=== PATIENT | female | born 1945 | race Caucasian/White ===

== ENCOUNTER 2019-01-21 06:56 | Emergency (ER) | payer MEDICARE, OTHER ==
[2019-01-21 07:08] VITALS: BP 142/103; PULSE 94
--- NOTE | 2019-01-21 07:23 | EDM.PDOC ---
ED HPI GENERAL MEDICAL PROBLEM - General Chief Complaint: Respiratory Problem Stated Complaint: PERSISTENT COUGH Time Seen by Provider: 01/21/19 07:09 - History of Present Illness INITIAL COMMENTS - FREE TEXT/NARRATIVE: HISTORY AND PHYSICAL: History of present illness: Patient is a 73-year-old white female who presents with concern of persistent cough after a recent vacation to [place] she states her son and [id number] both had developed pneumonia and she was concerned medical screening for pneumonia. She denies fever chills nausea vomiting she has no shortness of breath. She denies any cardiac history denies history of CHF denies chest pain Review of systems: As per history of present illness and below otherwise all systems reviewed and negative. Past medical history: As per history of present illness and as reviewed below otherwise noncontributory. Surgical history: As per history of present illness and as reviewed below otherwise noncontributory. Social history: No reported history of drug or alcohol abuse. Family history: As per history of present illness and as reviewed below otherwise noncontributory. Physical exam: HEENT: Atraumatic, normocephalic, pupils reactive, negative for conjunctival pallor or scleral icterus, mucous membranes moist, throat clear, neck supple, nontender, trachea midline. Lungs: Clear to auscultation, breath sounds equal bilaterally, chest nontender. Heart: S1S2, regular, negative for clicks, rubs, or JVD. Abdomen: Soft, nondistended, nontender. Negative for masses or hepatosplenomegaly. Negative for costovertebral tenderness. Pelvis: Stable nontender. Genitourinary: Deferred. Rectal: Deferred. Extremities: Atraumatic, negative for cords or calf pain. Neurovascular unremarkable. Neuro: Awake, alert, oriented. Cranial nerves II through XII unremarkable. Cerebellum unremarkable. Motor and sensory unremarkable throughout. Exam nonfocal. Diagnostics: Chest x-ray Therapeutics: None Impression: #1 pneumonitis Definitive disposition and diagnosis as appropriate pending reevaluation and review of above. - Related Data Allergies Allergy/AdvReac Type Severity Reaction Status Date / Time iodine Allergy Headache Verified 01/21/19 07:08 penicillin Allergy Hives Verified 01/21/19 07:08 Home Meds: Home Meds Caolcium Supplement 1 tab PO DAILY 01/25/15 [History] High Blood Pressure Pill 0 mg PO DAILY 01/25/15 [History] Past Medical History HEENT History: Reports: Impaired Vision Cardiovascular History: Reports: Hypertension Respiratory History: Reports: None Gastrointestinal History: Reports: None Genitourinary History: Reports: None [facility] [employer] History: Reports: Musculoskeletal History: Reports: None Neurological History: Reports: None Psychiatric History: Reports: None Endocrine/Metabolic History: Reports: None Hematologic History: Reports: None Immunologic History: Reports: None Oncologic (Cancer) History: Reports: None Dermatologic History: Reports: None - Infectious Disease History Infectious Disease History: Reports: Chicken Pox, Measles, Mumps, Shingles - Past Surgical History Head Surgeries/Procedures: Reports: None GI Surgical History: Reports: Cholecystectomy, Colonoscopy Female Surgical History: Reports: Hysterectomy Social & Family History - Tobacco Use Smoking Status *Q: Never Smoker - Recreational Drug Use Recreational Drug Use: No ED ROS GENERAL - Review of Systems Review Of Systems: ROS reveals no pertinent complaints other than HPI. ED EXAM, GENERAL - Physical Exam Exam: See Below (The dictation) Course - Vital Signs Last Recorded V/S: Last Vital Signs Temp 36.9 C 01/21/19 07:04 Pulse 94 01/21/19 07:04 Resp 18 01/21/19 07:04 BP 142/103 H 01/21/19 07:04 Pulse Ox 97 01/21/19 07:04 Departure - Departure Time of Disposition: 08:32 Disposition: Home, Self-Care 01 Condition: Good Clinical Impression: Pneumonitis - Discharge Information Referrals: PCP,None [Primary Care Provider] - Forms: ED Department Discharge Additional Instructions: The following information is given to patients seen in the emergency department who are being discharged to home. This information is to outline your options for follow-up care. We provide all patients seen in our emergency department with a follow-up referral. The need for follow-up, as well as the timing and circumstances, are variable depending upon the specifics of your emergency department visit. If you don't have a primary care physician on staff, we will provide you with a referral. We always advise you to contact your personal physician following an emergency department visit to inform them of the circumstance of the visit and for follow-up with them and/or the need for any referrals to a consulting specialist. The emergency department will also refer you to a specialist when appropriate. This referral assures that you have the opportunity for followup care with a specialist. All of these measure are taken in an effort to provide you with optimal care, which includes your followup. Under all circumstances we always encourage you to contact your private physician who remains a resource for coordinating your care. When calling for followup care, please make the office aware that this follow-up is from your recent emergency room visit. If for any reason you are refused follow-up, please contact the [facility] emergency department at and asked to speak to the emergency department charge nurse. [id number]-Anatoliy as prescribed follow-up primary medical doctor as needed as discussed and return as needed as discussed
--- NOTE | 2019-01-21 08:13 | CR ---
CHEST 2 VIEWS INDICATION: Chest pain, shortness of breath. IMPRESSION: Normal heart size and vascular pattern. Lungs are clear. No pneumothorax or pleural effusion. Dictated by Vijay Brandon MD @ Jan 21 2019 8:10AM Signed by Dr. Vijay Brandon @ Jan 21 2019 8:11AM
== END 2019-01-21 08:47 | disposition home or self-care (01) ==
LOC: MW.ED 06:56
DX: J18.9 Pneumonia, unspecified organism (principal); I10 Essential (primary) hypertension; Z88.0 Allergy status to penicillin; Z91.048 Other nonmedicinal substance allergy status; Z79.899 Other long term (current) drug therapy
CPT/HCPCS: 71046; 71046-26; 99282; 99283-25

== ENCOUNTER 2022-05-06 07:36 | Emergency (ER) | payer MEDICARE, OTHER ==
[2022-05-06 07:57] VITALS: BP 209/97; PULSE 78
== END 2022-05-06 08:48 | disposition home or self-care (01) ==
LOC: MW.ED 07:36
DX: H00.015 Hordeolum externum left lower eyelid (principal); I10 Essential (primary) hypertension; Z88.0 Allergy status to penicillin; Z91.041 Radiographic dye allergy status
CPT/HCPCS: 99283

== ENCOUNTER 2023-02-26 10:23 | Observation (INO) | payer MEDICARE, OTHER ==
[2023-02-26] MEDS ORDERED: Ondansetron 4 MG/2 ML SDV ONE (10:31)
[2023-02-26] MEDS ORDERED: Ondansetron 4 MG/2 ML SDV IVPUSH ONE (10:49)
[2023-02-26] MEDS ORDERED: Prochlorperazine 10 MG/2 ML SDV IVPUSH ONE (11:31)
[2023-02-26] MEDS ORDERED: Iopamidol 755 MG/ML 500 ML Multipack Bottle IVPUSH STA (11:36)
[2023-02-26 11:38] LABS: BASOPHILS PERCENT AUTO 0.2 % (0.0-1.5); HEMATOCRIT 41.1 % (36.0-46.0); LYMPHOCYTES ABSOLUTE AUTO 0.5 K/uL (0.6-2.4); MEAN CORPUSCULAR HGB CONC 34.1 g/dL (31.0-37.0); MEAN CORPUSCULAR VOLUME 88.2 fL (80.0-98.0); MONOCYTES ABSOLUTE AUTO 0.2 K/uL (0.0-0.8); MONOCYTES PERCENT AUTO 2.1 % (0.0-15.0); NEUTROPHILS PERCENT AUTO 93.7 % (48.0-80.0); NRBC ABSOLUTE 0 K/uL; PLATELET COUNT,PLT 258 K/uL (150-400); RED BLOOD CELL COUNT 4.66 M/uL (4.30-5.90); WHITE BLOOD CELL COUNT,WBC 11.69 K/uL (4.0-11.0)
[2023-02-26 12:00] LABS: A/G RATIO 1.1 (0.9-1.6); ALBUMIN 3.9 g/dL (3.4-5.0); CALCIUM 9.3 mg/dL (8.5-10.1); CARBON DIOXIDE,CO2 27.2 mmol/L (21.0-32.0); CREATININE 0.7 mg/dL (0.6-1.0); EST CRCL DRUG DOSING (CG) 54.79 mL/min; POTASSIUM,K 3.6 mmol/L (3.5-5.1); PROTEIN TOTAL,TP 7.4 g/dL (6.4-8.2)
[2023-02-26 12:01] LABS: BILIRUBIN TOTAL 0.4 mg/dL (0.2-1.0); LACTIC ACID 1.2 mmol/L (0.4-2.0); MAGNESIUM 1.9 mg/dL (1.8-2.4)
[2023-02-26 12:55] LABS: APPEARANCE,URINE CLEAR; BILIRUBIN,URINE NEGATIVE (NEGATIVE); GLUCOSE,URINE 100 mg/dL (NEGATIVE); KETONES,URINE TRACE mg/dL (NEGATIVE); LEUKOCYTE ESTERASE,URINE NEGATIVE (NEGATIVE); NITRITE,URINE NEGATIVE (NEGATIVE); OCCULT BLOOD,URINE TRACE-INTACT (NEGATIVE); PROTEIN,URINE NEGATIVE (NEGATIVE); UROBILINOGEN,URINE 0.2 EU/dL (<2.0)
[2023-02-26 12:58] LABS: COLOR,URINE STRAW
[2023-02-26 13:06] LABS: BACTERIA,URINE NOT SEEN (NEGATIVE); EPITHELIAL CELLS,URINE RARE (NONE-FEW); FINE GRANULAR CASTS,URINE 0-1 (NEGATIVE); HYALINE CASTS,URINE 0-1 (0-2/LPF); RBC,URINE 0-2 (0-2/HPF); WBC,URINE NONE SEEN (0-5/HPF)
[2023-02-26] MEDS ORDERED: Lactated Ringers 1,000 ML IV ONE (13:33)
[2023-02-26] MEDS ORDERED: Ondansetron 4 MG/2 ML SDV IVPUSH PRN (16:47)
[2023-02-26] MEDS ORDERED: Pantoprazole 40 MG in Sodium Chloride 0.9% 10 ML IVPUSH SCH (17:00)
[2023-02-26] MEDS: Lactated Ringers 1,000 ML IV SCH (17:45)
[2023-02-26] MEDS: Pantoprazole 40 MG in Sodium Chloride 0.9% 10 ML IVPUSH SCH (18:00)
[2023-02-26] MEDS: Enoxaparin 40 MG/0.4 ML Syringe SUBCUT SCH (18:00)
[2023-02-26] MEDS ORDERED: Promethazine 25 MG/ML SDV IM PRN (19:01)
[2023-02-26] MEDS ORDERED: Acetaminophen 325 MG Tab PO PRN (19:01)
[2023-02-26] MEDS ORDERED: Albuterol/Ipratropium 3.0-0.5 MG/3 ML Neb Soln NEB PRN (19:08)
[2023-02-26] MEDS ORDERED: Docusate Sodium 100 MG Cap PO PRN (19:08)
[2023-02-27] MEDS: Lactated Ringers 1,000 ML IV SCH ×2 (05:34→19:31)
[2023-02-27 05:49] LABS: BASOPHILS PERCENT AUTO 0.1 % (0.0-1.5); HEMATOCRIT 35.7 % (36.0-46.0); LYMPHOCYTES ABSOLUTE AUTO 0.7 K/uL (0.6-2.4); LYMPHOCYTES PERCENT AUTO 7.9 % (16.0-40.0); MEAN CORPUSCULAR HEMOGLOBIN 29.5 pg (27.0-32.0); MEAN CORPUSCULAR HGB CONC 33.6 g/dL (31.0-37.0); MEAN CORPUSCULAR VOLUME 87.7 fL (80.0-98.0); MONOCYTES ABSOLUTE AUTO 0.5 K/uL (0.0-0.8); MONOCYTES PERCENT AUTO 5.6 % (0.0-15.0); NEUTROPHILS ABSOLUTE AUTO 7.4 K/uL (1.4-5.7); NEUTROPHILS PERCENT AUTO 86.4 % (48.0-80.0); NRBC ABSOLUTE 0 K/uL; PLATELET COUNT,PLT 196 K/uL (150-400); RED BLOOD CELL COUNT 4.07 M/uL (4.30-5.90); WHITE BLOOD CELL COUNT,WBC 8.51 K/uL (4.0-11.0)
[2023-02-27 06:16] LABS: A/G RATIO 1.1 (0.9-1.6); ALBUMIN 3.2 g/dL (3.4-5.0); BILIRUBIN TOTAL 0.4 mg/dL (0.2-1.0); CALCIUM 9.2 mg/dL (8.5-10.1); CARBON DIOXIDE,CO2 25.8 mmol/L (21.0-32.0); CREATININE 0.8 mg/dL (0.6-1.0); EST CRCL DRUG DOSING (CG) 47.94 mL/min; MAGNESIUM 1.9 mg/dL (1.8-2.4); POTASSIUM,K 3.5 mmol/L (3.5-5.1); PROTEIN TOTAL,TP 6.2 g/dL (6.4-8.2)
[2023-02-27] MEDS ORDERED: Indapamide 2.5 MG Tablet PO SCH (09:00)
[2023-02-27] MEDS: Polyethylene Glycol 3350 Powder 17 GM Packet PO SCH (09:10)
[2023-02-27] MEDS: TELMISARTAN 80 MG PO SCH (10:01)
[2023-02-27] MEDS: Lisinopril 10 MG Tab PO SCH (10:22)
[2023-02-27] MEDS ORDERED: Carvedilol 25 MG Tab PO SCH (15:45)
[2023-02-27] MEDS: Calcium Carbonate/Vitamin D3 1500 MG-400 Units Tab PO SCH (16:04)
[2023-02-27] MEDS: Enoxaparin 40 MG/0.4 ML Syringe SUBCUT SCH (16:59)
[2023-02-27] MEDS ORDERED: INDAPAMIDE 1.25 MG PO SCH (17:52)
[2023-02-27] MEDS: Pantoprazole 40 MG in Sodium Chloride 0.9% 10 ML IVPUSH SCH (18:09)
[2023-02-27] MEDS ORDERED: Donepezil 5 MG Tab PO SCH (21:00)
[2023-02-28 05:56] LABS: BASOPHILS PERCENT AUTO 0.2 % (0.0-1.5); EOSINOPHILS ABSOLUTE AUTO 0.1 K/uL (0.0-0.7); EOSINOPHILS PERCENT AUTO 1.1 % (0.0-7.0); HEMATOCRIT 33.7 % (36.0-46.0); HEMOGLOBIN 11.6 g/dL (12.0-16.0); LYMPHOCYTES ABSOLUTE AUTO 1.4 K/uL (0.6-2.4); LYMPHOCYTES PERCENT AUTO 16.1 % (16.0-40.0); MEAN CORPUSCULAR HEMOGLOBIN 29.9 pg (27.0-32.0); MEAN CORPUSCULAR HGB CONC 34.4 g/dL (31.0-37.0); MEAN CORPUSCULAR VOLUME 86.9 fL (80.0-98.0); MONOCYTES ABSOLUTE AUTO 0.7 K/uL (0.0-0.8); MONOCYTES PERCENT AUTO 8.1 % (0.0-15.0); NEUTROPHILS ABSOLUTE AUTO 6.5 K/uL (1.4-5.7); NEUTROPHILS PERCENT AUTO 74.5 % (48.0-80.0); NRBC ABSOLUTE 0 K/uL; PLATELET COUNT,PLT 191 K/uL (150-400); RED BLOOD CELL COUNT 3.88 M/uL (4.30-5.90); WHITE BLOOD CELL COUNT,WBC 8.74 K/uL (4.0-11.0)
[2023-02-28 06:27] LABS: ALBUMIN 2.6 g/dL (3.4-5.0); BILIRUBIN TOTAL 0.4 mg/dL (0.2-1.0); CALCIUM 8.5 mg/dL (8.5-10.1); CARBON DIOXIDE,CO2 26.8 mmol/L (21.0-32.0); CREATININE 0.7 mg/dL (0.6-1.0); EST CRCL DRUG DOSING (CG) 54.79 mL/min; POTASSIUM,K 3.4 mmol/L (3.5-5.1); PROTEIN TOTAL,TP 5.1 g/dL (6.4-8.2)
[2023-02-28] MEDS ORDERED: Potassium Chloride 20 MEQ Tab.ER PO ONE ×2 (07:14→09:30)
[2023-02-28] MEDS ORDERED: Carvedilol 25 MG Tab PO SCH (09:00)
[2023-02-28] MEDS: Calcium Carbonate/Vitamin D3 1500 MG-400 Units Tab PO SCH (09:24)
[2023-02-28] MEDS: Lisinopril 10 MG Tab PO SCH (09:25)
[2023-02-28] MEDS: Polyethylene Glycol 3350 Powder 17 GM Packet PO SCH (09:30)
[2023-02-28] MEDS: TELMISARTAN 80 MG PO SCH (09:30)
[2023-02-28] MEDS ORDERED: Lisinopril 10 MG Tab ONE (09:50)
[2023-02-28 15:49] VITALS: BP 186/88; PULSE 52
== END 2023-02-28 16:10 | disposition home or self-care (01) ==
LOC: MW.ED 10:23 → MW.MS 16:07 → INTOOBSV 16:07
PROVIDERS: ADMIT Family Medicine; ATTEND Family Medicine
DX: K35.80 Unspecified acute appendicitis (principal); K38.1 Appendicular concretions; I10 Essential (primary) hypertension; E87.1 Hypo-osmolality and hyponatremia; Z90.49 Acquired absence of other specified parts of digestive tract; Z88.5 Allergy status to narcotic agent; Z88.0 Allergy status to penicillin; W19.XXXA Unspecified fall, initial encounter
CPT/HCPCS: 36415; 70450; 70496; 70498; 71045; 72125; 72170; 73502; 74177; 80053; 81001; 82550; 83605; 83735; 84484; 85025; 85610; 93005; 96361; 96372; 96374; 96375; 96376; 97161; 99285; A9270; C9113; G0378; J0780; J1650; J2405; J3490; J7120; Q9967; 93010; 99284

== ENCOUNTER 2023-05-11 09:15 | Emergency (ER) | payer MEDICARE, OTHER ==
[2023-05-11] MEDS ORDERED: Sodium Chloride 0.9% 2.5 ML Syringe FLUSH PRN (09:22)
[2023-05-11] MEDS ORDERED: Sodium Chloride 0.9% 10 ML Syringe FLUSH PRN (09:22)
[2023-05-11] MEDS ORDERED: Sodium Chloride 0.9% 500 ML IV SCH (09:30)
[2023-05-11 10:16] LABS: BASOPHILS ABSOLUTE AUTO 0.04 K/uL (0.00-0.20); BASOPHILS PERCENT AUTO 0.6 % (0.0-1.0); EOSINOPHILS ABSOLUTE AUTO 0.02 K/uL (0.00-0.45); EOSINOPHILS PERCENT AUTO 0.3 % (0.0-6.0); HEMATOCRIT 39.6 % (37.0-47.0); HEMOGLOBIN 13.8 g/dL (12.0-16.0); IMMATURE GRAN ABSOLUTE AUTO 0.01 K/uL (0.00-0.05); IMMATURE GRAN PERCENT AUTO 0.2 % (0.0-0.4); LYMPHOCYTES ABSOLUTE AUTO 0.59 K/uL (1.00-4.80); LYMPHOCYTES PERCENT AUTO 9.3 % (24.0-44.0); MEAN CORPUSCULAR HEMOGLOBIN 30.8 pg (28.0-32.0); MEAN CORPUSCULAR HGB CONC 34.8 g/dL (32.0-36.0); MEAN CORPUSCULAR VOLUME 88.4 fL (83.0-99.0); MEAN PLATELET VOLUME 8.7 fL (9.4-12.3); MONOCYTES ABSOLUTE AUTO 0.27 K/uL (0.00-0.80); MONOCYTES PERCENT AUTO 4.3 % (0.0-8.0); NEUTROPHILS ABSOLUTE AUTO 5.39 K/uL (1.80-7.70); NEUTROPHILS PERCENT AUTO 85.3 % (41.0-71.0); PLATELET COUNT,PLT 235 K/uL (150-400); RED BLOOD CELL COUNT 4.48 M/uL (4.10-5.30); WHITE BLOOD CELL COUNT,WBC 6.32 K/uL (3.9-11.3)
[2023-05-11 10:45] LABS: LACTIC ACID 0.8 mmol/L (0.4-2.0)
[2023-05-11 10:49] LABS: INR 0.98 (0.86-1.11)
[2023-05-11 11:06] LABS: A/G RATIO 1.1 (0.9-1.6); ALBUMIN 3.8 g/dL (3.4-5.0); BILIRUBIN TOTAL 0.4 mg/dL (0.2-1.0); CALCIUM 9.3 mg/dL (8.5-10.1); CARBON DIOXIDE,CO2 27.9 mmol/L (21.0-32.0); CREATININE 0.8 mg/dL (0.6-1.0); EST CRCL DRUG DOSING (CG) 50.05 mL/min; POTASSIUM,K 3.5 mmol/L (3.5-5.1); PROTEIN TOTAL,TP 7.3 g/dL (6.4-8.2)
[2023-05-11] MEDS ORDERED: Sodium Chloride 0.9% 1,000 ML IV ONE (12:04)
[2023-05-11 13:52] LABS: APPEARANCE,URINE CLEAR; BILIRUBIN,URINE NEGATIVE (NEGATIVE); COLOR,URINE YELLOW; GLUCOSE,URINE NEGATIVE (NEGATIVE); KETONES,URINE TRACE mg/dL (NEGATIVE); LEUKOCYTE ESTERASE,URINE NEGATIVE (NEGATIVE); NITRITE,URINE NEGATIVE (NEGATIVE); OCCULT BLOOD,URINE TRACE-INTACT (NEGATIVE); PROTEIN,URINE NEGATIVE (NEGATIVE); UROBILINOGEN,URINE 0.2 EU/dL (<2.0)
[2023-05-11 14:03] LABS: BACTERIA,URINE 3+ (NEGATIVE); EPITHELIAL CELLS,URINE RARE (NONE-FEW); RBC,URINE 0-1 (0-2/HPF); WBC,URINE 0-1 (0-5/HPF)
[2023-05-11] MEDS ORDERED: Nitrofurantoin Monohydrate/Macrocrystalline 100 MG Cap PO ONE (14:23)
[2023-05-11] MEDS ORDERED: Lisinopril 10 MG Tab PO ONE (15:21)
[2023-05-11] MEDS ORDERED: Carvedilol 25 MG Tab PO ONE (15:22)
[2023-05-11 19:09] VITALS: BP 196/79; PULSE 62
== END 2023-05-11 15:01 | disposition home or self-care (01) ==
LOC: MW.ED 09:15
DX: N39.0 Urinary tract infection, site not specified (principal); R53.1 Weakness; I10 Essential (primary) hypertension; K21.9 Gastro-esophageal reflux disease without esophagitis; Z20.822 Contact with and (suspected) exposure to COVID-19; Z90.49 Acquired absence of other specified parts of digestive tract; Z90.710 Acquired absence of both cervix and uterus; Z79.899 Other long term (current) drug therapy; Z88.0 Allergy status to penicillin; Z91.041 Radiographic dye allergy status
CPT/HCPCS: 36415; 70450; 71045; 80053; 81001; 83605; 83690; 84484; 85025; 85610; 87040; 93005; 96360; 96361; 99285; A9270; J3490; J7030; J7040; U0002; 93010; 99283

== ENCOUNTER 2024-04-10 15:14 | Emergency (ER) | payer MEDICARE, OTHER ==
[2024-04-10 15:24] VITALS: BP 175/84; PULSE 56
[2024-04-10] MEDS ORDERED: Sodium Chloride 0.9% 2.5 ML Syringe FLUSH PRN (16:35)
[2024-04-10] MEDS ORDERED: Sodium Chloride 0.9% 10 ML Syringe FLUSH PRN (16:35)
[2024-04-10 17:15] LABS: BILIRUBIN,URINE NEGATIVE (NEGATIVE); GLUCOSE,URINE NEGATIVE (NEGATIVE); KETONES,URINE NEGATIVE (NEGATIVE); LEUKOCYTE ESTERASE,URINE TRACE (NEGATIVE); NITRITE,URINE NEGATIVE (NEGATIVE); OCCULT BLOOD,URINE SMALL (NEGATIVE); PROTEIN,URINE NEGATIVE (NEGATIVE); UROBILINOGEN,URINE 0.2 EU/dL (<2.0)
[2024-04-10 17:21] LABS: APPEARANCE,URINE HAZY; COLOR,URINE DARK YELLOW
[2024-04-10 17:29] LABS: BASOPHILS ABSOLUTE AUTO 0.04 K/uL (0.00-0.20); BASOPHILS PERCENT AUTO 0.5 % (0.0-1.0); EOSINOPHILS ABSOLUTE AUTO 0.04 K/uL (0.00-0.45); EOSINOPHILS PERCENT AUTO 0.5 % (0.0-6.0); HEMATOCRIT 37.9 % (37.0-47.0); HEMOGLOBIN 12.7 g/dL (12.0-16.0); IMMATURE GRAN ABSOLUTE AUTO 0.03 K/uL (0.00-0.05); IMMATURE GRAN PERCENT AUTO 0.4 % (0.0-0.4); LYMPHOCYTES ABSOLUTE AUTO 0.99 K/uL (1.00-4.80); MEAN CORPUSCULAR HEMOGLOBIN 29.4 pg (28.0-32.0); MEAN CORPUSCULAR HGB CONC 33.5 g/dL (32.0-36.0); MEAN CORPUSCULAR VOLUME 87.7 fL (83.0-99.0); MEAN PLATELET VOLUME 8.9 fL (9.4-12.3); MONOCYTES ABSOLUTE AUTO 0.43 K/uL (0.00-0.80); MONOCYTES PERCENT AUTO 5.7 % (0.0-8.0); NEUTROPHILS ABSOLUTE AUTO 6.08 K/uL (1.80-7.70); NEUTROPHILS PERCENT AUTO 79.9 % (41.0-71.0); PLATELET COUNT,PLT 207 K/uL (150-400); RED BLOOD CELL COUNT 4.32 M/uL (4.10-5.30); WHITE BLOOD CELL COUNT,WBC 7.61 K/uL (3.9-11.3)
[2024-04-10 17:33] LABS: AMORPHOUS SEDIMENT,URINE FEW (NEGATIVE); BACTERIA,URINE FEW (NEGATIVE); EPITHELIAL CELLS,URINE FEW (NONE-FEW); MUCUS,URINE FEW (NONE-MOD); RBC,URINE 0-2 (0-2/HPF)
[2024-04-10 18:03] LABS: A/G RATIO 1.3 (0.9-1.6); ALBUMIN 3.7 g/dL (3.4-5.0); BILIRUBIN TOTAL 0.3 mg/dL (0.2-1.0); CALCIUM 9.2 mg/dL (8.5-10.1); CARBON DIOXIDE,CO2 29.8 mmol/L (21.0-32.0); CREATININE 1.1 mg/dL (0.6-1.0); EST CRCL DRUG DOSING (CG) 34.3 mL/min; POTASSIUM,K 4.3 mmol/L (3.5-5.1); PROTEIN TOTAL,TP 6.6 g/dL (6.4-8.2)
== END 2024-04-10 19:11 | disposition home or self-care (01) ==
LOC: MW.ED 15:14
DX: N30.00 Acute cystitis without hematuria (principal); I10 Essential (primary) hypertension; K21.9 Gastro-esophageal reflux disease without esophagitis; Z79.899 Other long term (current) drug therapy; Z88.0 Allergy status to penicillin; Z91.018 Allergy to other foods; Z90.49 Acquired absence of other specified parts of digestive tract; Z90.710 Acquired absence of both cervix and uterus; Z75.8 Other problems related to medical facilities and other health care
CPT/HCPCS: 36415; 70450; 70450-26; 80053; 81001; 83735; 84484; 85025; 87086; 93005; 93010; 99284; 99285